=== PATIENT | female | born 1990 | race Caucasian/White ===

== ENCOUNTER 2019-10-15 16:46 | Emergency (ER) | payer OTHER ==
[2019-10-15 17:09] VITALS: BP 110/65
--- NOTE | 2019-10-15 17:45 | UC ---
Lower Extremity/Ankle HPI - HPI Summary HPI Summary: 29-year-old female presenting with left medial foot and ankle pain x1 month after a fall. Notes swelling of the foot. Denies bruising. Notes increased pain with walking. Denies numbness and tingling. Denies decreased ROM. Denies taking anything for pain relief. - History of Current Complaint Chief Complaint: UCLowerExtremity Stated Complaint: LT ANKLE INJURY Hx Obtained From: Patient Hx Last Menstrual Period: 10/06/19 Pain Intensity: 9 Pain Scale Used: 0-10 Numeric - Allergies/Home Medications Allergies/Adverse Reactions: Allergies Allergy/AdvReac Type Severity Reaction Status Date / Time No Known Allergies Allergy Verified 10/15/19 17:09 Home Medications: Home Medications Acetaminophen [Tylenol Extra Strength] 1,000 mg PO DAILY 10/15/19 [History Confirmed 10/15/19] DULoxetine DR CAP* [Cymbalta CAP*] 90 mg PO DAILY 10/15/19 [History Confirmed ] hydrOXYzine HCL TAB* [Atarax 10 MG TAB*] 10 mg PO TID PRN 10/15/19 [History Confirmed 10/15/19] traZODone TAB* [Desyrel TAB*] 50 mg PO BEDTIME 10/15/19 [History Confirmed 10/15] PMH/Surg Hx/FS Hx/Imm Hx - Surgical History Surgical History: Yes Surgery Procedure, Year, and Place: left knee arthroscopy - Family History Known Family History: Positive: Non-Contributory - Social History Alcohol Use: Occasionally Substance Use Type: None Smoking Status (MU): Heavy Every Day Tobacco Smoker Type: Cigarettes Amount Used/How Often: 1 ppd Household Exposure Type: Cigarettes Review of Systems All Other Systems Reviewed And Are Negative: No Constitutional: Positive: Negative Skin: Negative: Bruising Respiratory: Positive: Negative Cardiovascular: Positive: Negative Musculoskeletal: Positive: Arthralgia - right ankle/foot, Edema - left medial foot. Negative: Decreased ROM Neurological/Mental Status: Positive: Negative Physical Exam - Summary Physical Exam Summary: Vital Signs Reviewed: Yes A+Ox3, no distress Eyes: Conjunctiva Clear ENT: Hearing grossly normal neck: supple Respiratory: Positive: No respiratory distress, No accessory muscle use Cardiovascular: skin color reflect adequate perfusion Musculoskeletal Exam: DENT x 4 without difficulty, +TTP of medial aspect of left midfoot, no edema, no erythema or ecchymosis, sensation grossly intact, strong pedal pulses, cap refill <2sec Neurological: Positive: Alert, ambulatory without difficulty Psychological: Positive: age appropriate behavior Skin: Positive: no rash, no ecchymosis Vital Signs: Initial Vital Signs Temp 96.7 F 10/15/19 17:06 Pulse 88 10/15/19 17:06 Resp 16 10/15/19 17:06 BP 110/65 10/15/19 17:06 Pulse Ox 98 10/15/19 17:06 Diagnostics - Radiology L ankle Radiology Interpretation Completed By: Radiologist Summary of Radiographic Findings: IMPRESSION: No fracture identified. L foot Radiology Interpretation Completed By: Radiologist Summary of Radiographic Findings: FINDINGS: The soft tissues are unremarkable. The bone mineralization is within normal limits. No definite fracture is identified. There is a probable os navicularis. Anatomic alignment is maintained. The joint spaces are preserved. IMPRESSION: NO CONVINCING FRACTURE. PROBABLE OS NAVICULARIS (MEDIAL MIDFOOT). CORRELATE WITH POINT TENDERNESS. COULD REPEAT IMAGING IN 7-10 DAYS. Lower Extremity Course/Dx - Course Course Of Treatment: Discussed possible fracture vs os navicularis with patient. I provided her with cam boot and instructed to rest, ice, elevate. Instructed to follow up with ortho if pain does not improve within 7-10 days. Patient voiced understanding and agreed with treatment plan. - Differential Dx/Diagnosis Differential Diagnosis/HQI/PQRI: Contusion, Fracture (Closed), Sprain, Strain, Tendonitis Provider Diagnosis: Acute pain of left foot Discharge ED - Sign-Out/Discharge Documenting (check all that apply): Patient Departure All imaging exams completed and their final reports reviewed: Yes - Discharge Plan Condition: Stable Disposition: HOME Patient Education Materials: Arthralgia (ED) Forms: *Work Release Referrals: Ryan Chavez MD [Medical Doctor] - If Needed Additional Instructions: As discussed, your xrays did not show any definite fractures today. Rest, ice, elevate, and use the cam boot to help alleviate pain and swelling. You may use over the counter pain medications as directed for pain relief. Refrain from strenuous physical activity until pain has fully resolved. Follow up with the orthopedic referral listed below if pain does not improve within 7-10 days. - Billing Disposition and Condition Condition: STABLE Disposition: Home
== END 2019-10-15 18:32 | disposition home or self-care (01) ==
LOC: UCCORT 16:46
DX: M25.571 Pain in right ankle and joints of right foot (principal); F17.210 Nicotine dependence, cigarettes, uncomplicated
CPT/HCPCS: 99212; G0463

== ENCOUNTER 2019-11-04 17:51 | Emergency (ER) | payer OTHER ==
[2019-11-04 18:51] VITALS: BP 107/64
== END 2019-11-04 19:05 | disposition left against medical advice (07) ==
LOC: UCCORT 17:51
DX: Z53.21 Procedure and treatment not carried out due to patient leaving prior to being seen by health care provider (principal)